=== PATIENT | male | born 1975 | race Caucasian/White ===

== ENCOUNTER 2024-01-05 09:46 | Emergency (ER) | payer OTHER, SELFPAY ==
[2024-01-05 10:50] VITALS: BP 125/82; PULSE 79; RESP 16; TEMP 37; O2SAT 98; BMI 23.3
--- NOTE | 2024-01-05 10:56 | ECG_ITS ---
Test Reason : dizziness Blood Pressure : / mmHG Vent. Rate : 067 BPM Atrial Rate : 067 BPM P-R Int : 172 ms QRS Dur : 096 ms QT Int : 392 ms P-R-T Axes : 055 052 049 degrees QTc Int : 414 ms Normal sinus rhythm Normal ECG No previous ECGs available Referred By: Generic ED Physician Electronically Signed By:Tom Urbina
--- NOTE | 2024-01-05 10:59 | ED.DIZZY ---
HPI - Dizziness General Chief Complaint: Dizziness Stated Complaint: Dizzy Time Seen by Provider: 01/05/24 14:16 Source: patient Mode of arrival: ambulatory Limitations: no limitations History of Present Illness ED Provider: JOY CROCKER PA-C HPI Narrative: 48 year old male with no significant past medical history presents to the ED today for evaluation of dizziness on waking this morning. Patient reports sitting up in bed when he suddenly felt a room spinning sensation. He had to sit there for a few minutes before the dizziness resolved. Reports driving to work and while at work looking up and down at various tools he suddenly felt dizzy again. Admits to room spinning sensation. Endorses associated nausea without vomiting. This episode has since resolved and he reports complete resolution of symptoms in the ED today. Denies syncope. Denies headache, vision changes, trauma/injury to head. Denies fever, chills, chest pain, palpitations, shortness of breath, lower extremity swelling/pain. Reports similar episode 10-15 years ago. He was not medically evaluated at that time and did not receive a medical diagnosis. Denies recent travel or long car rides. Related Data Previous Rx's ?Medication ?Instructions ?Recorded meclizine 25 mg tablet 25 mg PO DAILY PRN dizziness #20 01/05/24 tabs Allergies Allergy/AdvReac Type Severity Reaction Status Date / Time No Known Allergies Allergy Verified 01/05/24 10:55 Review of Systems Review of Systems: Constitutional: No fever, chills, fatigue, night sweats, weight changes ENT/Mouth: No ear pain, hearing loss, nasal congestion, sinus pain, rhinorrhea, sore throat Eyes: No eye pain, swelling, redness, vision changes, discharge Cardio: No chest pain, palpitations, KHAN, orthopnea, peripheral edema Pulm: No SOB, cough, sputum, wheezing, dyspnea, hemoptysis GI: No nausea, vomiting, hematemesis, abdominal pain, diarrhea, constipation, hematochezia, melena : No irregular bleeding, dysuria, frequency, urgency, hesitancy, hematuria, flank pain, urinary flow changes, urinary incontinence or retention MSK: No back pain, neck pain, joint pain, myalgias Skin: No lesions, rashes Neuro: No weakness, numbness, paresthesias, LOC, dizziness, headache Psych: No anxiety/panic, depression, SI/HI, AH/VH All other systems reviewed and are negative. [facility] Past Medical History Attestation statement: The following information was validated with the patient. Source: old records reviewed Social History Social History Advance Directives: No Advance Directives Information Provided: Yes Physical Exam Vital Signs: Vital Signs: Last Vital Signs Temp 98 F 01/05/24 17:36 Pulse 77 01/05/24 17:36 Resp 20 01/05/24 17:36 BP 152/86 H 01/05/24 17:36 Pulse Ox 100 01/05/24 17:36 O2 Del Method Room Air 01/05/24 17:36 BMI result Body Mass Index 23.3 Patient hypertensive, vitals otherwise WNL. Const: General: cooperative, healthy appearing, comfortable and no acute distress Orientation/consciousness: patient oriented x3 Limitations: no limitations HEENT: Head: Yes normal to inspection, Yes No palpable skull fracture present, Yes normocephalic and Yes atraumatic Ears: hearing grossly normal bilaterally Eyes: General: appearance normal, both eyes and all related structures Pupils: Equal, round and reactive pupils present Neck: Neck: Yes normal visual inspection, Yes full ROM, Yes no lymphadenopathy, Yes no meningeal signs and Yes no JVD Resp: Effort & Inspection: normal respiratory effort and able to speak in complete sentences Auscultation: clear to auscultation bilaterally Cardio: Jugular venous distension: no JVD Rate: regular rate Rhythm: regular rhythm GI: Inspection: Yes normal to inspection Palpation (GI): Soft to palpation and nontender : General: Yes no CVA tenderness Back/Spine/Pelvis: Back: no CVA tenderness Skin: General skin exam: no rashes or lesions noted Neuro: General: patient oriented x3, gait normal, tone normal, moves all extremities, no meningeal signs and no focal motor deficits Cranial nerves: Yes Equal, round and reactive pupils present Gait exam (Neuro): Normal gait present Motor exam (neuro): 5/5 motor strength present throughout and Pronator motor function not present Coordination: [id number] test normal, [id number] test normal and Normal rapid alternating movements of the distal upper extremity present (Neuro) Pupils: Normal pupillary reactivity/response: bilateral Extrem: General: Yes normal to inspection Course Course Course Narrative: This is an E: Additional HPI, ROS, PE not included below will be deferred to primary provider. RME assessment and note performed by: Shelbie Larose PA-C This is a [id number], with no known medical problems, who presents to the ER with a complaint of intermittent dizziness since 5am this morning. Pt states that he feels dizzy when he changes position. He has no dizziness at this time. No head trauma. No LOC. No CP/SOB. VSS. Plan: Labs, EKG, further ER evaluation needed. Reevaluation(s) Reevaluation #1: 1437-- CBC without leukocytosis or left shift. No anemia. H&H stable. Chemistry without acute electrolyte abnormality requiring intervention. Normal renal function. Troponin . EKG showing normal sinus rhythm with a rate of 67 beats per minute, QT 392, QTC 414, no acute ischemic changes or ST elevations. Urine with trace leukocyte esterase and 6-10 urine WBC. No urine bacteria seen. Patient does not endorse urinary symptoms. Will await urine culture to treat for urinary tract infection. > ortho vitals negative. > patient receiving 1 L IV fluids and meclizine. Will re-evaluate. 1606-- On re-evaluation, patient continues to be asymptomatic. He is ambulating with steady gait. No further episodes of dizziness following IV fluids and meclizine. I feel comfortable discharging patient home with meclizine and PCP follow-up. I do not feel as though imaging of his head is warranted at this time as there has been no acute injury or trauma and his exam is nonfocal. Patient has remained stable throughout ED visit today. Discussed worrisome signs and symptoms and when to return to the ED. All questions answered at this time. Patient is agreeable with disposition and stable for discharge. Medications Administered Discontinued Medications Generic Name Dose Route Start Last Admin Trade Name Freq PRN Reason Stop Dose Admin Sodium Chloride 1,000 mls @ 999 mls/hr 01/05/24 14:30 01/05/24 16:15 Ns IV 01/05/24 15:30 Infused .Q1H1M DEVON Infusion Meclizine HCl 25 mg 01/05/24 14:30 01/05/24 14:59 Meclizine Hcl 25 Mg Tablet PO 01/05/24 14:31 25 mg ONCE ONE Administration Medical Decision Making Medical Decision Making [facility] Narrative: 48 year old male with no significant past medical history presents to the ED today for evaluation of dizziness on waking this morning. Vital signs stable, afebrile. He is nontoxic-appearing and in no acute distress. PERRLA. Exam is nonfocal. Cerebellum intact. Ambulating with steady gait. RRR. Lungs are CTA bilaterally. No calf tenderness bilaterally. Differential diagnosis includes anemia, electrolyte abnormality, dehydration, orthostatic hypotension, vertigo. Lower suspicion for arrhythmia, ACS. Unlikely PE, ICH, CVA/TIA, cerebellar stroke. Plan for basic labs, urinalysis, EKG, orthostatic vitals, IV fluids, meclizine and re-evaluation. Differential Diagnosis Differential Diagnoses: The differential diagnosis associated with the presentation includes As above Admission/Observation Not indicated Lab Data [facility] Lab Attestation statement: I reviewed the patient's lab results. As above 01/05/24 11:14 01/05/24 11:14 Labs: Lab Results 01/05/24 01/05/24 Range/Units 11:14 12:46 WBC 6.8 (4.8-10.8) X10*3/uL RBC 4.86 (4.60-5.80) X10*6/uL Hgb 14.9 (14.0-18.0) g/dl Hct 43.9 (42.0-52.0) % MCV 90.3 (80.0-98.0) fL MCH 30.7 (27.0-33.0) pg MCHC 33.9 (31.0-36.0) g/dl RDW 12.7 (11.0-16.0) % Plt Count 251 (160-400) X10*3/uL MPV 10.1 (9.4-12.4) fL Immature Gran % (Auto) 0.1 (0.0-0.4) % Neut % (Auto) 56.0 (45-73) % Lymph % (Auto) 30.1 (20-40) % [place] % (Auto) 11.5 H (2-11) % Eos % (Auto) 1.3 (0-4) % Baso % (Auto) 1.0 (0-2) % Lymph # (Auto) 2.1 (1.2-4.9) X10*3/uL [place] # (Auto) 0.8 (0.1-1.2) X10*3/uL Eos # (Auto) 0.1 (0.0-0.4) X10*3/uL Baso # (Auto) 0.1 (0.0-0.2) X10*3/uL Abs Immat Gran (auto) 0.01 (0.00-0.03) X10*3/uL Absolute Neuts (auto) 3.8 (2.0-8.3) x10*3/uL Absolute Nucleated RBC 0.000 (0.0-0.012) X10*3/uL Nucleated RBC % (auto) 0.0 (0.0-0.2) /100WBC Sodium 143 (135-145) mmol/L Potassium 3.8 (3.3-5.1) mmol/L Chloride 106 (96-108) mmol/L Carbon Dioxide 28 (22-29) mmol/L Anion Gap 13 (12-20) BUN 14 (9-16) mg/dL Creatinine 1.03 (0.5-1.4) mg/dL Estim Creat Clear Calc 90.5 Estimated GFR > 60 Random Glucose 104 (60-115) mg/dL Calcium 10.1 (8.4-10.2) mg/dL Troponin I High Sens < 2.7 (<3.5-35.0) ng/L Urine Color Yellow Urine Appearance Clear Urine pH 6.5 (5.0-9.0) Ur Specific [place] 1.015 (1.005-1.025) Urine Protein Negative (Neg-Trace) mg/dL Urine Glucose (UA) Negative (Negative) mg/dL Urine Ketones Negative (Negative) mg/dL Urine Blood Negative (Negative) Urine Nitrite Negative (Negative) Ur Leukocyte Esterase Trace H (Negative) Urine RBC 0-2 (0-2) /HPF Urine WBC 6-10 H (0-5) /HPF Ur Squamous Epith Cells 0-2 (0-2) /HPF Urine Bacteria None Seen (None Seen) Hyaline Casts 0-2 (0-2) /LPF Independent Interpretation I performed an independent interpretation of an: EKG Interpretation: EKG showing normal sinus rhythm with a rate of 67 beats per minute, QT 392, QTC 414, no acute ischemic changes or ST elevations. Prescription Management I considered prescription management with: Other (meclizine) Social Determinants Patient?s care significantly limited by Social Determinants of Health including: Other Social Determinant of Health Critical Care Time Critical Care Time Critical Care Time: No Discharge Plan Discharge Clinical Impression: Vertigo Patient Disposition: Home, Self-Care Instructions: Vertigo (ED), Dizziness (ED) Additional Instructions: Your blood work today is reassuring. Your EKG is normal. Your urine does not demonstrate infection. You were treated with IV fluids and a dose of meclizine today. Meclizine is a medication that has been sent to your pharmacy for you to take for dizziness. Please follow up with your primary care provider. Return with new or worsening symptoms. In the case of an emergency call 911. Prescriptions: New meclizine 25 mg tablet 25 mg PO DAILY PRN (Reason: dizziness) Qty: 20 0RF Referrals: [facility] [Provider Group] [facility] [Provider Group] Stand Alone Forms: Work/School Release Interventions: ED Discharge Assessment Last Done: 01/05/24 17:36 Discharge Date/Time: 01/05/24 17:36 Print Language: Italian
[2024-01-05 11:19] LABS: MANUAL DIFF FLAG NO
[2024-01-05 11:21] LABS: Basophils Absolute Auto 0.1 X10*3/uL (0.0-0.2); Eosinophils Absolute Auto 0.1 X10*3/uL (0.0-0.4); Eosinophils Percent Auto 1.3 % (0-4); Hematocrit 43.9 % (42.0-52.0); Hemoglobin 14.9 g/dl (14.0-18.0); Imm Gran Abs Auto 0.01 X10*3/uL (0.00-0.03); Imm Gran Pct Auto 0.1 % (0.0-0.4); Lymphocytes Absolute Auto 2.1 X10*3/uL (1.2-4.9); Lymphocytes Percent Auto 30.1 % (20-40); Mean Corpuscular HGB Conc 33.9 g/dl (31.0-36.0); Mean Corpuscular Hemoglobin 30.7 pg (27.0-33.0); Mean Corpuscular Volume 90.3 fL (80.0-98.0); Mean Platelet Volume 10.1 fL (9.4-12.4); Monocytes Absolute Auto 0.8 X10*3/uL (0.1-1.2); Monocytes Percent Auto 11.5 % (2-11); Neutrophils Absolute Auto 3.8 x10*3/uL (2.0-8.3); Platelet Count 251 X10*3/uL (160-400); Red Blood Count 4.86 X10*6/uL (4.60-5.80); Red Cell Distribution Width 12.7 % (11.0-16.0); White Blood Count 6.8 X10*3/uL (4.8-10.8)
[2024-01-05 11:30] LABS: Anion Gap 13 (12-20); Blood Urea Nitrogen 14 mg/dL (9-16); Calcium 10.1 mg/dL (8.4-10.2); Carbon Dioxide 28 mmol/L (22-29); Chloride 106 mmol/L (96-108); Creatinine Clr Calc Pharmacy 90.5; Estimated Glomerular Filt Rate > 60; Glucose Random 104 mg/dL (60-115); Potassium 3.8 mmol/L (3.3-5.1); Sodium 143 mmol/L (135-145)
[2024-01-05 12:37] VITALS: BP 142/86; PULSE 64; RESP 16; TEMP 36.6; O2SAT 98
[2024-01-05 12:57] LABS: Appearance Urine Clear; Color Urine Yellow; Glucose Urine UA Negative (Negative); Leukocyte Esterase Urine Trace (Negative); Nitrite Urine Negative (Negative); PH 6.5 (5.0-9.0); Specific Gravity - Urine 1.015 (1.005-1.025); UMIC TRIGGER UACC YES; Urine Blood Negative (Negative); Urine Ketones Negative (Negative); Urine Protein Negative (Neg-Trace)
[2024-01-05 13:00] LABS: Bacteria Urine None Seen (None Seen); Hyaline Casts Urine 0-2 /LPF (0-2); RBC Urine 0-2 /HPF (0-2); Squamous Epithelial Cell Urine 0-2 /HPF (0-2); UACC Culture Trigger YES
[2024-01-05 14:53] LABS: Troponin-I High Sensitivity < 2.7 ng/L (<3.5-35.0)
[2024-01-05] MEDS: Meclizine HCl 25 MG TABLET PO (14:59)
[2024-01-05] MEDS: 0.9 % Sodium Chloride 1,000 ML 999 ML IV (15:03)
[2024-01-05 16:11] VITALS: BP 143/81; PULSE 77
[2024-01-05 16:12] VITALS: BP 143/87; PULSE 70
[2024-01-05 16:14] VITALS: BP 152/86; PULSE 77
[2024-01-05 17:36] VITALS: BP 152/86; PULSE 77; RESP 20; TEMP 36.6; O2SAT 100
== END 2024-01-05 17:36 | disposition home or self-care (01) ==
PROVIDERS: Physician Assistant Medical; Emergency Provider Emergency Medicine
DX: R42 Dizziness and giddiness (principal); R11.0 Nausea; R82.90 Unspecified abnormal findings in urine; Z79.899 Other long term (current) drug therapy
CPT/HCPCS: 36415; 80048; 81001; 84484; 85025; 87086; 93005; 96360; 99284

== ENCOUNTER → 2024-01-05 10:56 | Outpatient (BNV) | payer OTHER, SELFPAY | PROVIDERS: Visit Provider Internal Medicine Cardiovascular Disease | DX: R42 Dizziness and giddiness (principal) | CPT/HCPCS: 93010 ==